=== PATIENT | female | born 1940 | race Caucasian/White ===

== ENCOUNTER 2022-11-13 13:55 | Day surgery (SDC) | payer OTHER, SELFPAY ==
[2022-11-07 08:29] VITALS: BMI 21.9
[2022-11-13] VITALS (9 sets, daily range): BP systolic 132–169; BP diastolic 55–79; PULSE 48–68; RESP 12–19; TEMP 35.8–36.7; O2SAT 94–100; BMI 21.9
--- NOTE | 2022-11-13 | DI.RAD.S_ITS ---
PROCEDURE: XR PELVIS 1-2V INDICATIONS: INTEROP TECHNIQUE: Intra-operative view of the pelvis and hip acquired. COMPARISON: [facility] [place], CR, XR PELVIS WITH BILATERAL LATERAL HIPS, 09/19/2022, 15:29. FINDINGS: Bones: Intraoperative devices prior to placement of arthroplasty prostheses are in expected positions. No fractures or suspicious bony lesions. Soft tissues: Overlying surgical retractors are present, along with other intraoperative changes. IMPRESSION: Intraoperative device in expected alignment. Dictated by: Donavan Rosales M.D. on 11/13/2022 at 19:35 Approved by: Donavan Rosales M.D. on 11/13/2022 at 19:35
--- NOTE | 2022-11-13 08:49 | DI.RAD.S_ITS ---
PROCEDURE: XR HIP W PEL IF DONE RT 2V INDICATIONS: Postop TECHNIQUE: AP pelvis and lateral view of the right hip acquired. COMPARISON: [facility], CR, XR PELVIS 1-2V, 11/13/2022, 16:40. [facility] [place], CR, XR PELVIS WITH BILATERAL LATERAL HIPS, 09/19/2022, 15:29. FINDINGS: Bones: Patient is status post right hip arthroplasty, with hardware components in expected positions. The hip joint appears congruent. The visualized bony structures appear intact. Note is made of severe left hip joint degeneration. Soft tissues: Overlying postoperative changes are noted. No suspicious soft tissue densities. IMPRESSION: Expected postsurgical changes. Dictated by: Donavan Rosales M.D. on 11/13/2022 at 18:38 Approved by: Donavan Rosales M.D. on 11/13/2022 at 18:38
[2022-11-13] MEDS: CELECOXIB 200 MG CAPSULE PO (14:20)
[2022-11-13] MEDS: ACETAMINOPHEN 325 MG TABLET 975 MG PO (14:20)
[2022-11-13] MEDS: PREGABALIN 75 MG CAPSULE PO (14:20)
[2022-11-13] MEDS: LACTATED RINGERS 1,000 ML 42 ML IV (14:21)
[2022-11-13] MEDS: VANCOMYCIN 1,000 MG/200 ML PIGGYBACK 200 MG IV (14:45)
--- NOTE | 2022-11-13 14:52 | SUR.PREOP ---
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 States they put IV's in each hand and they destroyed her veins in her arms. State the ritika come to her home on [address] every year around . States friends have felt their energy but not seen them. States they are not here with her today. 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 States some are robotic human like and some are 3 feet tall and some are 8 feet tall. Reassured she will be safe here and to notify staff if she sees ritika.
--- NOTE | 2022-11-13 15:19 | PM.PREOP ---
Pre-operative Note Interval Note History & Physical reviewed/Exam performed by Physician: Yes Changes to H&P: No
--- NOTE | 2022-11-13 15:22 | P.OP_ITS ---
Operative Date/Time/Diagnoses Date of procedure: 11/13/22 Time of procedure: 15:40 Pre-op diagnosis: Severe right hip OA Post-op diagnosis: same Procedure & Clinicians Procedure: Right total hip arthroplasty posterior approach Same procedure as scheduled: Yes Indications: The patient has had progressively worsening right hip pain with radiographic changes consistent with arthritis. Non-operative management has failed and the patient has requested total hip replacement. The risks, benefits and alternatives to surgery were discussed with the patient prior to proceeding. Risks discussed included, but were not limited to, failure to relieve pain, leg length discrepancy, dislocation, stiffness, infection, nerve damage, deep venous thrombosis, pulmonary embolism, stroke, coma, heart attack, permanent paralysis and , as well as the potential need for eventual revision of the prosthetic. Surgeon: Yohana Edgar Litigation Paralegal: Donny Paul Anesthesia Type: General and Spinal Operative Notes Findings: Severe right hip osteoarthritis, soft bone, adequate stability Closure Type: primary Specimen(s): none sent Prosthetic devices, grafts, tissues, transplants, or devices: Edgar and Nephew R3 size 50, Synergy cemented size 15 standard offset femoral stem, neutral poly liner, one 6.5 mm screw, 32 x +0 femoral head Estimated Blood Loss (mL): 250 Blood products transfused: none Procedure in detail: The patient was seen in the pre-operative area, where the patient identified the right hip as the operative site and this was marked with my initials. The patient received pre-operative antibiotics and was taken to the operating room and placed on the operative table in the left lateral decubitus position after satisfactory anesthesia. A petroleum supply specialist out was performed. The right leg was prepared from the ankle to the iliac crest with ChloroPrep in the usual fashion and draped through sterile drapes. A PA was used throughout the procedure and was essential for intraoperative positioning, retraction and safe implantation of the components. The hip was approached through an approximately 20 cm incision centered over the greater trochanter and curving gently posteriorly as it went proximally. This was carried sharply to the fascia jocelyn, which was divided and retracted with a self retaining retractor. The trochanteric bursa was excised with care being taken to avoid the sciatic nerve, which was identified and protected throughout the case. The short external rotators were incised and the capsulomuscular flap was raised and tagged for later repair. The hip was dislocated, and a femoral neck osteotomy performed approximately 15 mm above the lesser trochanter. Retractors were placed around the femur. The canal was opened with a box cutting osteotome, followed by a T handled reamer and a lateralizing reamer. The chili pepper broach was then used, followed by sequential broaching until there was good stability of the broach in the femur. Retractors were placed to expose the acetabulum. The labrum and central soft tissues were removed. Reaming was performed initially going up in 2 mm increments, then 1 mm increments until good bite was obtained with an odd sized reamer. The cup 1 mm larger than the last reamer was then inserted using the appropriate anteversion guides. A trial neutral liner was placed. The broach was placed in the canal. A trial head and neck were then placed and the hip relocated and checked for leg length and stability. An intraoperative film confirmed the component position and no evidence of fracture. The patient was stable in the position of sleep, of squatting, and could be put through a range of motion with 45 degrees internal rotation without dislocation. At 90 degrees flexion, internal rotation to 70? was possible before dislocation. This was felt to be satisfactory and the appropriate components were opened, and the trials were removed. The acetabular liner was impacted into position. A distal cement restrictor was placed. The canal was prepared with pulse lavage and meticulously packed with a epinephrine spoke soaked sponge and then carefully dried. A distal cement restrictor was used. The cement was inserted and pressurized. The final stem was then impacted into the prepared femoral canal. It was carefully held at with meticulous attention directed at position and version during the setting of the cement. A brief Betadine soak was performed while trialing with head options. The hip was meticulously irrigated with normal saline. Finally the femoral head was impacted onto the stem. The acetabulum was cleared of all material and the hip relocated one final time. The capsulomuscular flap was then repaired to the greater trochanter though an awl hole using the tag sutures. The short external rotators were repaired with a nonabsorbable suture. The fascia jocelyn was closed with Vicryl. The subcutaneous layer was closed with barbed sutures and SteriStrips. A july dressing was applied and the patient was taken to recovery having tolerated the procedure well. Complications: none Post-operative Condition: stable Disposition: Acute Care Plan for aftercare: The patient will be maintained on a standard total hip replacement protocol with weight bearing as tolerated and posterior hip precautions. The patient will receive Aspirin and sequential compression devices for DVT prophylaxis. The patient will be discharged home when safe for the home environment.
[2022-11-13] MEDS: CEFAZOLIN 2 GM/100 ML PREMIX 100 ML IV (16:00)
--- NOTE | 2022-11-13 16:18 | SUR.OPER ---
Lateral on padded OR bed. Gel axillary roll. Arms secured on padded armboard with pillows supporting top arm and bottom arm. Padded hip positioner braces x4 - anterior and posterior chest and pelvis. Additional gel pad used anterior pelvis. Gel pad under bottom leg from knee to foot and secured with tape over sheet.
[2022-11-13] MEDS: BUPIVACAINE 0.25% (PF) 60 ML, EPINEPHrine 0.3 MG INJ (16:24)
[2022-11-13] MEDS: BUPIVACAINE LIPOSOME 266 MG/20 ML VIAL INJ (16:25)
[2022-11-13] MEDS: EPINEPHrine 1 MG/ML IRR (16:27)
[2022-11-13] MEDS: ACETAMINOPHEN 325 MG TABLET 650 MG PO (19:28)
[2022-11-13] MEDS: IBUPROFEN 400 MG TABLET PO (19:29)
[2022-11-13] MEDS: LACTATED RINGERS 1,000 ML 100 ML IV (19:30)
[2022-11-13] MEDS: OXYCODONE IR 5 MG TABLET PO (19:41)
[2022-11-13] MEDS: PROPRANOLOL 10 MG TABLET 40 MG PO (19:41)
[2022-11-13] MEDS: OXYCODONE IR 10 MG TABLET PO (20:34)
[2022-11-13] MEDS: DOCUSATE 100 MG CAPSULE PO (20:34)
[2022-11-13] MEDS: ASPIRIN EC 81 MG TABLET PO (21:35)
[2022-11-14] VITALS (11 sets, daily range): BP systolic 74–135; BP diastolic 35–65; PULSE 49–66; RESP 13–18; TEMP 36.1–36.2; O2SAT 95–98
[2022-11-14] MEDS: CEFAZOLIN 2 GM/100 ML PREMIX 100 ML IV ×2 (01:00→08:18)
[2022-11-14] MEDS: IBUPROFEN 400 MG TABLET PO ×4 (01:32→16:15)
[2022-11-14] MEDS: ACETAMINOPHEN 325 MG TABLET 650 MG PO ×3 (01:37→13:45)
[2022-11-14] MEDS: OXYCODONE IR 5 MG TABLET PO (01:38)
[2022-11-14 05:04] LABS: Hematocrit 35.3 % (36-46)
--- NOTE | 2022-11-14 07:52 | PM.DS.1 ---
History of Present Illness History of Present Illness Date Patient Seen: 11/14/22 Time Patient Seen: 07:52 Chief complaint: OPB Narrative: Operative Date/Time/Diagnoses Date of procedure: 11/13/22 Time of procedure: 15:40 Pre-op diagnosis: Severe right hip OA Post-op diagnosis: same Procedure & Clinicians Procedure: Right total hip arthroplasty posterior approach Same procedure as scheduled: Yes Indications: The patient has had progressively worsening right hip pain with radiographic changes consistent with arthritis. Non-operative management has failed and the patient has requested total hip replacement. The risks, benefits and alternatives to surgery were discussed with the patient prior to proceeding. Risks discussed included, but were not limited to, failure to relieve pain, leg length discrepancy, dislocation, stiffness, infection, nerve damage, deep venous thrombosis, pulmonary embolism, stroke, coma, heart attack, permanent paralysis and , as well as the potential need for eventual revision of the prosthetic. Surgeon: Yohana Edgar Case Packer And Sealer: Donny Paul Anesthesia Type: General and Spinal Operative Notes Findings: Severe right hip osteoarthritis, soft bone, adequate stability Closure Type: primary Specimen(s): none sent Prosthetic devices, grafts, tissues, transplants, or devices: Edgar and Nephew R3 size 50, Synergy cemented size 15 standard offset femoral stem, neutral poly liner, one 6.5 mm screw, 32 x +0 femoral head Estimated Blood Loss (mL): 250 Blood products transfused: none Discharge Providers Provider Discharge Date: 11/14/22 Primary care physician: ALMAZ Kirby Consults: 11/13/22 08:49 Consult to Anesthesiology Routine Comment: Consulting Provider: Anesthesiologist Reason for consultation: Regional block for post operative pain control 11/13/22 19:13 Consult to Discharge Planning Routine Comment: Consult to Occupational Therapy Evaluate & Treat Comment: Physician Instructions: Evaluate and treat Consult to Physical Therapy Evaluate & Treat Comment: Physician Instructions: post op RUBÉN protocol Discharge provider: Marie Mendoza PA-C Summary Hospital Course Discharge Diagnosis: Right hip osteoarthritis, s/p right total hip arthroplasty Hospital Course: Ms Barnard's hospital course was unremarkable. On the morning of POD# 1, she was not having significant pain, but she was feeling weak and unsure about going home. She does have someone lined up to help her at home, but she was afraid her care would be 'too much' for this person to handle. She was eating and voiding without difficulty, but she had not yet worked w/ PT. Exam Vital Signs (past 8 hours): - 11/14/22 00:00 11/14/22 04:00 11/14/22 06:53 Temperature 97.1 F L 97.0 F L Pulse Rate 50 L 63 64 Respiratory Rate 13 17 18 Blood Pressure 135/65 114/49 L 124/62 Pulse Oximetry 98 95 95 Oxygen Flow Rate 4 2 0 Oxygen Delivery Method Room Air Oxygen Flow Rate 0 Narrative Exam Narrative: 5/5 strength in hip flexors, quadriceps, hamstrings, DF, PF, EHL on right. Sensation to light touch intact throughout RLE. Calf soft, compressible, nontender and without palpable cords or masses. JAZIEL dressing functioning, CDI. Objective Labs 11/14/22 04:25 Labs: Laboratory Results - last 24 hr 11/14/22 04:25 Hgb 12.0 Hct 35.3 L PFSH Medical History (Updated 11/07/22 @ 09:23 by Betzaida Johnson RN) Bilateral hip pain Edema History of COVID-19 (~08/2022) Kidney stone Osteoarthritis Raynaud's phenomenon Sleep apnea Syncope (10/2021) Tremor Surgical History (Updated 11/07/22 @ 09:21 by Betzaida Johnson RN) Hx of tonsillectomy Hx of tubal ligation Social History household members: none Smoking Status: Never smoker alcohol intake: current Discharge Assessment & Plan Assessment and Plan Assessment: Right hip osteoarthritis, s/p right total hip arthroplasty Plan of Treatment: Discharge home after PT if PT agrees and pt feeling confident in abilities to take care of herself at home with minimal assistance. ASA BID x 6 weeks for VTE prophylaxis, multimodal pain control, outpt PT, f/u in office in 2 weeks as scheduled. Discharge Plan Discharge Plan Patient Disposition: Home Discharge orders & Medications Discharge Orders: Discharge (Order); Ordered 11/14/22 Ordered By: Marie Mendoza Prescriptions: Continued acetaminophen 500 mg Tablet 1,000 mg PO DAILY propranolol 40 mg Tablet 40 mg PO TID PRN (Reason: Tremors) biotin 10,000 mcg Capsule 20,000 mcg PO DAILY ibuprofen 200 mg Tablet 600 mg PO BID furosemide 20 mg Tablet 20 mg PO DAILY Medication counseling provided by Pharmacist: Yes Follow up/Referrals: Samaria Hyde, FELIX-C [Primary Care Provider] - Yohana Edgar MD [Physician] - As previously scheduled (Follow up w/ Dr Edgar on 11/28/2022 @ 3:30 pm at [facility] office in [place].) Diet/Activity/Treatments Diet: Diet as Tolerated Activity: Weight bearing as tolerated to right leg. Posterior hip precautions. Skin/Wound/Dressing Care Report to your healthcare provider any signs of infection, such as:: chills, fever, night sweats, unusual drainage and unusual redness Dressing: May shower. Leave dressing in place until follow up in office. When batteries in 5-7 days, may remove and dispose of battery pack. No bathing or otherwise soaking incision. Call the office if the dressing becomes saturated inside. Visit Report/Discharge Packet Instructions: DI for Hip Replacement Stand Alone Forms: Patient Portal/API, Surgery Discharge Discharge Data Primary Care Provider: Samaria Hyde Attending Provider: Yohana Edgar
[2022-11-14] MEDS: PROPRANOLOL 10 MG TABLET 40 MG PO (08:18)
[2022-11-14] MEDS: ASPIRIN EC 81 MG TABLET PO (08:18)
[2022-11-14] MEDS: FUROSEMIDE 20 MG TABLET PO (08:18)
[2022-11-14] MEDS: DOCUSATE 100 MG CAPSULE PO (08:18)
--- NOTE | 2022-11-14 09:02 | OT.IP.EVAL ---
Current Diagnoses Unilateral post-traumatic osteoarthritis, right hip (11/13/22) Surgery Performed Operation Date: 11/13/22 14:15 Actual Procedures p Total Hip Arthroplasty posterior(Right) - Yohana Edgar MD Past Medical History (Last Updated 11/07/22 @ 09:23 by Betzaida Johnson RN) Bilateral hip pain Edema History of COVID-19 (~08/2022) Kidney stone Osteoarthritis Raynaud's phenomenon Sleep apnea Syncope (10/2021) Tremor Surgical History (Last Updated 11/07/22 @ 09:21 by Betzaida Johnson RN) Hx of tonsillectomy Hx of tubal ligation Occupational Therapy Inpatient Evaluation/Re-Eval M1 PT/OT-IP Prior Functional Status Start: 11/14/22 09:10 Freq: NEEDED Status: Active Protocol: Document 11/14/22 08:21 [facility] (Rec: 11/14/22 09:29 [facility] [id number]) Medical Review Prior Functional Status Communication Independent Mobility and Gait Pt states just this past week has used a 4ww, otherwise was using her cane. Activities of Daily Living and IADL's Pt had pain with ADL and IADL needs. Prior Functional Level (Other details) Pt has an employee/friend who will be staying with her initially at night and then will be there during the day to assist with her needs. Social History Household Members none Living Arrangements House Number of Floors (Floors) Two Floors Number of Stairs To Enter/Railing? Pt has a ramp to enter and stairs to the upstairs. Pt can stay on the main level as has a hospital bed in the living room. Home Environment High Toilet Home Equipment Front Wheel Walker,Four Wheel Walker,Straight Cane,Bedside Commode,Drop Tester,Grab Bars Near Toilet Additional Social History Comment Pt also has an apartment next to her house with 2 steps and left rail to enter, high toilet with grab bars, walk in shower, and hand held shower spray. Pt can stay there if needed. Pt states will just service inspector a large basin by the sink to sponge off. M2 OT-IP Current Condition Start: 11/14/22 09:10 Freq: Status: Active Protocol: Document 11/14/22 08:21 [facility] (Rec: 11/14/22 09:29 [facility] [id number]) Occupational Therapy Current Condition Current Condition Evaluation Date 11/14/22 Treatment Diagnosis S/p R RUBÉN posterior approach Diagnosis Onset Date 11/13/22 Post Operative Precautions Posterior Hip Precautions No Hip Flexion > 90 degrees,No Hip Internal Rotation,No Hip Adduction M3 OT- IP Subjective and Pain Start: 11/14/22 09:10 Freq: Status: Active Protocol: Document 11/14/22 08:21 [facility] (Rec: 11/14/22 09:29 [facility] [id number]) OT- Subjective Occupational Therapy Visit Type Type Initial Evaluation Visit Start Time 08:21 Visit Stop Time 09:02 Total Visit Minutes 42 Occupational Therapy Visit Comments Patient Comments Pt agreed to get up. Patient/Caregiver Goals TO go home. OT Pain Assessment Pain When Pain Assessed During Mobility Pain Present Pain Present Pain Reported Location Right Hip Intensity 5 Scale Used Numeric (0 - 10) M4 OT- IP ADL's Start: 11/14/22 09:10 Freq: Status: Active Protocol: Document 11/14/22 08:21 [facility] (Rec: 11/14/22 09:29 [facility] [id number]) OT ZQE-Rpsw-Rxofeuw General Evaluation Self-Feeding Ability Independent OT ADL-Grooming Comments OT Grooming Comments Pt able to wash her hands after set-up. OT ADL-Oral Care Comments Oral Care Comments Not performed. OT ADL-Dressing General Eval Lower Body Dressing Ability Minimal Assistance,Maximum Assistance Areas Needing Assistance Socks Comments OT Dressing Comments Pt able to practice use of sock aid to assist for LB dressing needs. Pt states her friend will just be able to assist her. Pt states has Signal Integrity Engineer slip on shoes. OT ADL-Toileting Comments OT Toileting Comments Prior to OT session , pt used the BSC with nursing. Suggested best for pt to stand for hygiene needs with use of wet wipes. In addition to wear pull up brief at night to prevent having to gray to the bathroom at night. OT ADL-Bathing Comments OT Bathing Comments Not performed. M5 OT- IP IADL's Start: 11/14/22 09:10 Freq: Status: Active Protocol: Document 11/14/22 08:21 [facility] (Rec: 11/14/22 09:29 [facility] [id number]) OT-Instrumental Activities of Daily Living Home Safety Awareness Home Safety Comments Pt has a supportive friend, Peg who herself has had same hip surgery 3 years ago. Peg to stay with the pt initially for a couple days and then be there during the work day. M6 OT- IP Functional Cognition Start: 11/14/22 09:10 Freq: Status: Active Protocol: Document 11/14/22 08:21 [facility] (Rec: 11/14/22 09:29 [facility] [id number]) Cognitive Factors Limiting Selfcare Function Cognitive Ability Level of Alertness Alert Patient Orientation Name,Age,Birthday,Month,Date, Year,Day of Week,Place, Situation Attention Span Ability Capable of Focused Attention, Capable of Sustained Attention Safety Awareness Decreased Recall of Precautions,Decreased Ability to Apply Precautions, Underestimates Need for Assistance Cognitive Comments Cognitive Assessment Comments Pt is easily distracted. Pt not able to recall all hip precautions and needing cues to follow during mobility and ADl needs. OT- Vision and Hearing OT- Hearing Assessment OT- Hearing Assessment WFL OT- Vision Assessment Visual Acuity Glasses For Reading M7 OT- IP Mobility and Balance Start: 11/14/22 09:10 Freq: Status: Active Protocol: Document 11/14/22 08:21 [facility] (Rec: 11/14/22 09:29 [facility] [id number]) OT-Transfer Assessment Sit to and From Stand Sit to and from Stand Contact Guard Assistance Transfers Transfer Ability Standby Assistance Technique Transfer Destination Bed Transfer Technique Stand Step Pivot Devices Transfer Assistive Devices Gait Belt,Front Wheeled Walker Comments Mobility Comments CGA to close SBA to come to stand from the recliner to FWW . Pt able to walk in the room with SBA and needing cues to follow her hip precautions when sitting back down. OT- Balance Assessment Sitting Balance and Reactions Static Sitting Balance Ability Normal Dynamic Sitting Balance Ability Good Standing Balance and Reactions Static Standing Balance Ability Good Dynamic Standing Balance Ability Fair M9 OT- IP Assessment and Plan Start: 11/14/22 09:10 Freq: Status: Active Protocol: Document 11/14/22 08:21 [facility] (Rec: 11/14/22 09:29 [facility] [id number]) OT Summary Assessment and Plan Potential Rehabilitation Potential Excellent Analytic Complexity at Evaluation Low Summary OT Impairments Pain,Balance,Functional Cognition,Functional Mobility, Dressing,Toileting,Bathing, Toilet Transfers,Shower Transfers,Activity Tolerance Progress Towards Goals Progressing Toward Goals Assessment Summary Pt low complexity and main barrier are having difficulty to incorporate her hips precautions during ADl and mobility needs, pain, and a little unsteady on her feet. Pt also has arthritis in her left hip. Pt has a supportive friend who will be staying with her to assist and also work with the pt and will be there to assist during the day as well. Pt to go home with assist when medically stable. Pt's bp sitting 102/58 and after walking 120/62 and o2 on RA 99%. Goals Self-Feeding Goal Independent Grooming Goal Independent Dressing Goal Independent,Drop Tester Toileting Goal Independent Bathing Goal Independent Toilet Transfer Goal Independent Shower Transfer Goal Independent Patient/Caregiver Education Goal Demonstrate Post-Op Precautions Days to Meet Goals 5 Frequency of Treatment Frequency Of Treatment Once a Day Treatment Plan OT Treatment Plan ADL Training,Functional Cognition Training,Functional Mobility,Patient/Family Education,Discharge Planning Other Treatment Recommendations and Next shower if pt still here Treatment Focus Discharge Recommendations OT Discharge Recommendations Home with Assistance, Outpatient PT Transportation Needs at Discharge Private Vehicle
--- NOTE | 2022-11-14 11:47 | PT.IIE ---
Current Diagnoses Unilateral post-traumatic osteoarthritis, right hip (11/13/22) Surgery Performed Operation Date: 11/13/22 14:15 Actual Procedures p Total Hip Arthroplasty posterior(Right) - Yohana Edgar MD Surgical History (Last Updated 11/07/22 @ 09:21 by Betzaida Johnson RN) Hx of tonsillectomy Hx of tubal ligation Medical History (Last Updated 11/07/22 @ 09:23 by Betzaida Johnson RN) Bilateral hip pain Edema History of COVID-19 (~08/2022) Kidney stone Osteoarthritis Raynaud's phenomenon Sleep apnea Syncope (10/2021) Tremor Physical Therapy Inpatient Evaluation/Re-Eval M1 PT/OT-IP Prior Functional Status Start: 11/14/22 09:10 Freq: NEEDED Status: Active Protocol: Document 11/14/22 11:30 ES (Rec: 11/14/22 11:47 ES [id number]) Medical Review Prior Functional Status Medical History Reviewed Yes Communication Independent Mobility and Gait Pt states just this past week has used a 4ww, otherwise was using her cane independently. Activities of Daily Living and IADL's Pt had pain with ADL and IADL needs. Social History Household Members none Living Arrangements House Number of Floors (Floors) Two Floors Number of Stairs To Enter/Railing? Pt has a ramp to enter and stairs to the upstairs. Pt can stay on the main level as has a hospital bed in the living room. Home Environment High Toilet Home Equipment Front Wheel Walker,Four Wheel Walker,Straight Cane,Bedside Commode,Fitness And Wellness Instructor,Hospital Bed, Bed Rails,Grab Bars Near Toilet Additional Social History Comment Pt has an employee/friend who will be staying with her initially at night and then is there during the work day to assist with her needs. Pt also has an apartment next to her house with 2 steps and left rail to enter, high toilet with grab bars, walk in shower , and hand held shower spray. Pt can stay there if needed. Pt states will just director packaging a large basin by the sink to sponge off. M2 PT-IP Current Condition Start: 11/14/22 11:28 Freq: NEEDED Status: Active Protocol: Document 11/14/22 11:30 ES (Rec: 11/14/22 11:47 ES [id number]) Physical Therapy Current Condition Current Condition Evaluation Date 11/14/22 Treatment Diagnosis s/p R RUBÉN posterior Onset Date 11/13/22 M3 PT-IP Subjective Start: 11/14/22 11:28 Freq: NEEDED Status: Active Protocol: Document 11/14/22 11:30 ES (Rec: 11/14/22 11:47 ES [id number]) Subjective Physical Therapy Visit Type Type Initial Evaluation Visit Start Time 10:47 Visit Stop Time 11:25 Total Visit Minutes 38 Physical Therapy Visit Comments Patient Comments Patient up in recliner, alert, agreeable to work with PT. Stated she is planning to go home tomorrow because the surgeon told her she could stay another night. Therapy Pain Assessment Pain When Pain Assessed At Rest Pain Present Pain Present Pain Reported Location Right Hip Intensity 5 Scale Used Numeric (0 - 10) Pain Management Techniques Apply Cold,Timing of Activity with Medications M4 PT-IP Mobility and Gait Start: 11/14/22 11:28 Freq: NEEDED Status: Active Protocol: Document 11/14/22 11:30 ES (Rec: 11/14/22 11:47 ES [id number]) PT-Bed Mobility Assessment Supine to Sit Supine to Sit Minimal Assistance,Head of Bed Elevated,Bedrails Sit to Supine Sit to Supine Minimal Assistance,Head of Bed Elevated,Bedrails Scooting Scooting to Edge of Bed Standby Assistance Scooting Up and Down in Bed Standby Assistance PT-Transfer Assessment Sit to and From Stand Sit to and from Stand Contact Guard Assistance,Use of Upper Extremities Equipment Transfer Assistive Device Gait Belt,Front Wheeled Walker Orthotic/Prosthetic Devices or Brace: No Transfers Transfer Destination Bed,Chair Transfer Technique Ambulated Transfer Ability Level of Assist Contact Guard Assistance,Use of Upper Extremities Comments Mobility Comments Reviewed precautions with patient prior to getting up. Patient able to perform transfers with min cues for precautions, min cues for hand placement for safety with FWW . Gait Assessment Gait Gait Assistance Required: Contact Guard Assist Distance (Feet) 80 Able to Maintain Weight Bearing Status Yes During Gait Assistive Devices Assistive Device Gait Belt,Front Wheeled Walker Orthotic/Prosthetic Devices or Brace: No Gait Deviations General Gait Pattern Antalgic,Flexed Trunk Factors Limiting Gait Function Factors Limiting Gait Function Decreased Strength,Pain,Poor Balance Comments Gait Comments Cued patient to initiate gait with RLE but would revert to LLE after stopping. She was cued to keep FWW close to her to reduce fall risk. Ambulated slowly. Stair Climbing Assessment Comments Stair Climbing Comments Offered to do stair training to prepare for getting in/out of apartment but patient was not willing to do so this visit. PT-Balance Assessment Sitting Balance and Reactions Static Sitting Balance Ability Good Dynamic Sitting Balance Ability Good Standing Balance and Reactions Static Standing Balance Ability Fair Dynamic Standing Balance Ability Fair Device Used FWW M5 PT-IP Objective Assessments Start: 11/14/22 11:28 Freq: NEEDED Status: Active Protocol: Document 11/14/22 11:30 ES (Rec: 11/14/22 11:47 ES [id number]) Orientation Orientation/Cognition Level of Alertness Alert Safety Awareness Understands Safety Issues Memory Description Short Term Impaired Comments Difficulty recalling precautions/instructions, needs reminders. Gross Range of Motion Lower Extremity ROM Assessment Bilaterally Impaired Impairments Decreased active hip flex and abd B. Strength Lower Extremity Strength Assessment Right Impaired Comments Strength Comments R hip flexion/SLR and abd 3-/5 M6 PT-IP Treatment Start: 11/14/22 11:28 Freq: NEEDED Status: Active Protocol: Document 11/14/22 11:30 ES (Rec: 11/14/22 11:47 ES [id number]) Physical Therapy Treatment Exercises Exercises Ankle Pumps,Gluteal Sets,Quad Sets,Heel Slides,Supine Hip Abduction Education Education Provided Precautions,Weight Bearing Status,Post-Op Packet,Safety Other Treatments Other Treatment Performed Education on using FWW for safety at home vs 4WW until stronger and less painful. M7 PT-IP Assessment and Plan Start: 11/14/22 11:28 Freq: NEEDED Status: Active Protocol: Document 11/14/22 11:30 ES (Rec: 11/14/22 11:47 ES [id number]) PT Summary Assessment and Plan Potential Rehabilitation Potential Good Status of Condition at Evaluation Stable Summary Impairments Pain,ROM,Strength,Balance,Bed Mobility,Transfers,Gait Assessment Summary Patient is a 82 year old female POD 1 s/p R posterior RUBÉN. She required assistance with bed mobility due to weakness in RLE. She otherwise was CGA for transfers and gait using FWW. She was able to performe RUBÉN ex's with min A for heel slides and hip abd, improved with repetition. She will benefit from another PT session to review hip precautions and exercises, and to trial use of leg hand plug shaper to increase her independence with bed mobility. Anticipate she will be able to d/c home this afternoon with caregiver' s assistance. Goals Bed Mobility Goal Standby Assistance Transfer Goal Standby Assistance,Front Wheeled Walker Gait Goal Standby Assistance,Front Wheel Walker Gait Distance 100 Other Goals Patient will be indep with RUBÉN HEP. Patient will be able to recall hip precautions without cues. Days to Meet Goals 2 Frequency of Treatment Frequency Of Treatment Twice a Day Treatment Plan Physical Therapy Treatment Plan Bed Mobility Training,Transfer Training,Gait Training, Therapeutic Exercise,Post Op Education,Discharge Planning, Hot or Cold Pack Precautions Posterior Hip Precautions No Hip Flexion > 90 degrees,No Hip Internal Rotation,No Hip Adduction Other Precautions Fall risk Weight Bearing Status Weight Bearing Status Weight Bear as Tolerated Allowed Weight Bearing Amount (enter % WBAT RLE or #) (%) Recommendations To Nursing Amount of Assist Needed 1 Person Assist Discharge Recommendations PT Discharge Recommendations Home with Assistance, Outpatient PT Transportation Needs at Discharge Private Vehicle
--- NOTE | 2022-11-14 14:38 | PT-IP ANOTE ---
Pt refused to work with PT this afternoon. She reports being too tired and sore from this morning. Will check back in later today or tomorrow morning.
--- NOTE | 2022-11-14 15:00 | PT.IPTN ---
Current Diagnoses Unilateral post-traumatic osteoarthritis, right hip (11/13/22) Surgery Performed Operation Date: 11/13/22 14:15 Actual Procedures p Total Hip Arthroplasty posterior(Right) - Yohana Edgar MD Physical Therapy Treatment Note M2 PT-IP Current Condition Start: 11/14/22 11:28 Freq: NEEDED Status: Active Protocol: Document 11/14/22 11:30 ES (Rec: 11/14/22 11:47 ES [id number]) Physical Therapy Current Condition Current Condition Evaluation Date 11/14/22 Treatment Diagnosis s/p R RUBÉN posterior Onset Date 11/13/22 M3 PT-IP Subjective Start: 11/14/22 11:28 Freq: NEEDED Status: Active Protocol: Document 11/14/22 15:15 TS (Rec: 11/14/22 15:27 TS [id number]) Subjective Physical Therapy Visit Type Type Treatment Note Visit Start Time 15:00 Visit Stop Time 15:15 Total Visit Minutes 15 Number of RIDE MECHANIC Visits 1 Physical Therapy Visit Comments Patient Comments Pt found resting in recliner, reports feeling sore and being cold, after some motivation agreed to PT. M4 PT-IP Mobility and Gait Start: 11/14/22 11:28 Freq: NEEDED Status: Active Protocol: Document 11/14/22 15:15 TS (Rec: 11/14/22 15:27 TS [id number]) PT-Transfer Assessment Sit to and From Stand Sit to and from Stand Contact Guard Assistance,Use of Upper Extremities Equipment Transfer Assistive Device Gait Belt,Front Wheeled Walker Orthotic/Prosthetic Devices or Brace: No Comments Mobility Comments Pt recalled 3/3 hip precautions prior to mobility. Sit to stand CGA with FWW, pt impulsive to stand before therapist was ready. She ambulated ~150' SBA with FWW, quick step to gait with flexed posture. pt was left back in chair with nursing discussing d/c. Gait Assessment Gait Gait Assistance Required: Standby Assistance Distance (Feet) 150 Able to Maintain Weight Bearing Status Yes During Gait Assistive Devices Assistive Device Gait Belt,Front Wheeled Walker Orthotic/Prosthetic Devices or Brace: No Gait Deviations General Gait Pattern Antalgic,Flexed Trunk Factors Limiting Gait Function Factors Limiting Gait Function Decreased Strength,Pain,Poor Balance Comments Gait Comments See mobility comments. Stair Climbing Assessment Comments Stair Climbing Comments Pt reports she is not going to be doing stairs. Has a ramp at home. PT-Balance Assessment Sitting Balance and Reactions Static Sitting Balance Ability Good Dynamic Sitting Balance Ability Good Standing Balance and Reactions Static Standing Balance Ability Good Dynamic Standing Balance Ability Fair Device Used FWW M5 PT-IP Objective Assessments Start: 11/14/22 11:28 Freq: NEEDED Status: Active Protocol: Document 11/14/22 11:30 ES (Rec: 11/14/22 11:47 ES [id number]) Orientation Orientation/Cognition Level of Alertness Alert Safety Awareness Understands Safety Issues Memory Description Short Term Impaired Comments Difficulty recalling precautions/instructions, needs reminders. Gross Range of Motion Lower Extremity ROM Assessment Bilaterally Impaired Impairments Decreased active hip flex and abd B. Strength Lower Extremity Strength Assessment Right Impaired Comments Strength Comments R hip flexion/SLR and abd 3-/5 M6 PT-IP Treatment Start: 11/14/22 11:28 Freq: NEEDED Status: Active Protocol: Document 11/14/22 15:15 TS (Rec: 11/14/22 15:27 TS [id number]) Physical Therapy Treatment Exercises Exercises Ankle Pumps,Quad Sets,Heel Slides Education Education Provided Precautions,Weight Bearing Status,Post-Op Packet,Safety Other Treatments Other Treatment Performed Pt performed ankle pumps, quad sets, heel slides. M7 PT-IP Assessment and Plan Start: 11/14/22 11:28 Freq: NEEDED Status: Active Protocol: Document 11/14/22 15:15 TS (Rec: 11/14/22 15:27 TS [id number]) PT Summary Assessment and Plan Potential Rehabilitation Potential Good Summary Impairments Pain,ROM,Strength,Balance,Bed Mobility,Transfers,Gait Progress Towards Goals Progressing Toward Goals Assessment Summary Pt continues to progress well with her mobility. She progressed her gait to SBA ~ 150' in hallway, she denied any dizziness, SOB or thermal changes. She demonstrates a quick pacing step to gait with no buckling or LOB. She demonstrated good carryover and understanding of her hip precautions and post-op exercises. PT is recommending return home with assist from caregiver and outpatient therapy. Goals Bed Mobility Goal Standby Assistance Transfer Goal Standby Assistance,Front Wheeled Walker Gait Goal Standby Assistance,Front Wheel Walker Gait Distance 100 Other Goals Patient will be indep with RUBÉN HEP. Patient will be able to recall hip precautions without cues. Days to Meet Goals 2 Frequency of Treatment Frequency Of Treatment Twice a Day Treatment Plan Physical Therapy Treatment Plan Bed Mobility Training,Transfer Training,Gait Training, Therapeutic Exercise,Post Op Education,Discharge Planning, Hot or Cold Pack Precautions Posterior Hip Precautions No Hip Flexion > 90 degrees,No Hip Internal Rotation,No Hip Adduction Other Precautions Fall risk Weight Bearing Status Weight Bearing Status Weight Bear as Tolerated Allowed Weight Bearing Amount (enter % WBAT RLE or #) (%) Recommendations To Nursing Amount of Assist Needed 1 Person Assist Discharge Recommendations PT Discharge Recommendations Home with Assistance, Outpatient PT Transportation Needs at Discharge Private Vehicle
--- NOTE | 2022-11-14 15:54 | PC.NURSE ---
pt's blood pressure dropped to 78/38 map-51, heart rate-54 while sitting in chair at 1115. rechecked blood pressure with a smaller cuff on opposite arm and got a reading of 79/37 map-55, heart rate-55. pt was asymptomatic. Restarted IV fluids and encouraged oral intake. Continued to monitor with pressures ranging from 70's/30s- low 90's/50's. Called PILLO Mendoza and she said the pt was okay to discharge if she was asymptomatic. pt very upset because she was under the impression she could stay longer- per her conversation with Dr. Edgar prior to surgery was told that she could stay up to 2-3 days, mentioned contacting her supervisor asbestos textile. Care management team came and discussed options with her. pt decided to be discharged-pt called her caregiver to come pick her up and is on her way. 1650 pt continually taking off chair alarm and getting up without calling nursing staff. Discussed safety measures and using the call light when getting up and waiting for staff to assist her. pt is alert and oriented but is refusing to use the call light or walker at this time. Will continue to monitor and do frequent patient checks to ensure safety.
--- NOTE | 2022-11-14 17:39 | PC.NURSE ---
Patient is dressed and IV has been removed. Discussed s/s of infection and s/s of stroke, reiterated safety measures at home; including using a walker, taking time to get up, and appropriate use of narcotics. Patient has no further questions. Wheeled out to private vehicle via wheelchair by certified indoor environmentalist and accompanied by friend.
--- NOTE | 2022-11-14 17:51 | CM.DANOTE ---
DCP Assessment: Patient is a 82yo female here under SDC following a planned right hip surgery with Dr. Edgar on 11.13.22. PCP: Samaria Hyde Payer: [employer] and self pay ACCOUNT EXECUTIVE METALWORKING reviewed EMR. PILLO Salazar placed signed d/c orders in the am. PT/OT recommend home with assistance. From nursing staff, patient reported she did not want to go home and surgery team told her she could stay two or three days. From nursing staff, nurse reports being concerned with patient's low blood pressure for her d/c home safely. Patient had refused to work with PT later in the day due to being tired, but nursing and PT report wanting to get her up and moving to see if patient's blood pressure would rise WNL with movement. Nursing staff informed PILLO Salazar about patient's blood pressure. Marie reported to nurse patient was still okay to d/c home from their perspective. ACCOUNT EXECUTIVE METALWORKING entered room and introduced self and role. Patient was sitting up in her chair and appeared A/Ox4. Patient reports not wanting to go home today due to surgery team tell her she can stay another day. ACCOUNT EXECUTIVE METALWORKING attempted to explain at length the difference between SDC and OBS status and how that would impact her bill due to medicare Part A versus Part B coverage. Patient did not appear to understand at this time. UR RN Atiya Sprague attempted to explain the difference in status and what that means for her stay. Patient did not appear to understand. Metal Furniture Panel Coverer/UR lead Yaneli attempted to explain, at length, to which patient appeared to understand. 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 Patient reports her BP is typically lower at baseline. PT/OT have cleared patient to d/c home with assistance at this time. Patient has a walker, cane, hospital bed, and additional equipment and has a caregiver at home to support her. Plan: patient will d/c home with assistance from caregiver in POV. CM team will continue to follow as needed. GRISELDA Kitchen Discharge Planning/Care Management CM Discharge Assessment Start: 11/14/22 17:48 Freq: Status: Active Protocol: Document 11/14/22 17:48 (Rec: 11/14/22 17:51 [id number]) Discharge Planning Assessment Assigned Solutions Manager Zina, ACCOUNT EXECUTIVE METALWORKING DPOA/Assigned Designee Name Peg Jhaveri (friend) Contact Information [phone] Advance Directives? No History Provided By Patient,Medical Record Prior Living Arrangements House Household Members none Comment has a 24 hour caregiver at home DME Already Rented / Owned Hospital Bed,FWW / Walker,Cane ,Other Comment ramp, bed rails Barriers to Discharge No Discharge Plan Home Transportation Arrangement caregiver will transport Whiteboard Updated in Patient Room with Yes name and ext. # of Solutions Manager Review Status In Process Next Review Type Continued Stay Review Pre-Anesthesia Assessment Start: 11/07/22 08:29 Freq: Status: Discharge Protocol: Document 11/07/22 08:29 [facility] (Rec: 11/07/22 09:41 CAB [id number]) Pre-Anesthesia Assessment Preferred Name Marky Patient Information Reviewed Via Phone Assessment Assessment Completed With Patient Diagnostic Results BMP/CMP,CBC,EKG Comment Outside labs/EKG scanned Primary Care Provider Samaria Hyde Seen Specialist in Last 12 Months Yes Specialist Seen Orthopedist Primary Language Slovak Industrial Engineering Required No Height 162.56 cm Weight 58.06 kg Body Mass Index (BMI) 21.9 Hearing Ability Normal Visual Assist Magnifying Glass Dentition Type Teeth, Natural Present Barriers to Learning None Hx Anesthesia Reactions No Hx Family Anesthesia Reaction No Hx Malignant Hyperthermia No Hx Blood Transfusions No Anesthesia Review Requested No Tie Loader No alcohol intake current alcohol intake frequency a few times a week Smoking Status Never smoker Substance Use Type does not use Pain Present Pain Reported Musculoskeletal Symptoms Abnormal Gait,Difficulty Walking,Joint Pain,Joint Swelling,Radiating Pain into Limb History of Falling (Recent or History of Yes ) Patient is completely paralyzed or No completely immobile Prosthesis or Orthotic Device Cane,Front Wheel Walker Mental Status Oriented to own ability Is patient on oxygen? No Does patient have BURNS/SOB No Hx Sleep Apnea Yes: No treatment, pt states resolved with potassium intake Currently Taking a Beta Joe Yes: Propranolol for tremors Hx Chest Pain No Hx SOB No Hx Syncope or Dizziness No Anti-Coagulant Therapy No Has a Public Health Dietitian No Cardiac Testing No Hx Pacemaker/ICD No Pacemaker Rep Required? No Cardiac Clearance Received Not Applicable Diet Type At Home Regular,Vegetarian Dysphagia No: Avoids, sugars, flours, gluten Gastrointestinal Symptoms None Chronic UTI No Bladder Pattern Incontinent Urinary Catheter Present No Hx Urinary Self Catheterization No Diabetes No HgbA1C 5.4 Date 09/24/22 Patient No Lactating No Hx Drug Resistant Organism No Presence of External or Internal Medical No Devices Have you had any close contact with No someone diagnosed with COVID-19? Received a COVID vaccine? Yes Received all doses? Yes Marital Status / Lives With none Current Living Arrangements House Number of Floors (Floors) Two Floors Support System Caregiver Does the Patient Have Assistance After Yes: Caregiver will stay with Surgery pt @DC to assist with care Patient Discharge Plan Description Return Home Comment Pt advised 1-2 day length of stay per surgeon Feels Safe in Current Environment Yes Been Physically Hurt or Threatened By a No Person in Current Environment Do you have thoughts of harming yourself None or others? Are you currently considering suicide? No Do you have a plan to hurt yourself or No Plan others? Do You Have Any Spiritual Beliefs That No May Affect Your HC Choices? Do You Have Any Cultural Practices That No May Affect Your HC Choices? Comment Buddaist Who Can We Speak to About Patient's Care Family, friends Identifying Code for Release of Patient Declines to issue Information Health Care Proxy/Next of Kin Kelli (daughter) Peg ( caregiver) Health Care Proxy Phone Number Kelli [phone] Peg: [phone] Emergency Contact Name Kelli (daughter) Peg ( caregiver) Emergency Contact Phone Number Kelli [phone] Peg: [phone] Advance Directives? No Power of Postal Support Employee No PAC Instructions Do not shave/clip surgical site,Durable medical equipment ,Medications to take/avoid, Nasal antibiotic,No ETOH/ petroleum product on skin DOS, NPO,Pre-surgical wash,Sensory aids,Sturdy shoes/comfortable clothes,Do not bring valuables and remove jewelry
== END 2022-11-14 17:46 | disposition home or self-care (01) ==
LOC: OR 13:58 → AC 13:59
PROVIDERS: PCP Registered Nurse; Referring Provider Orthopaedic Surgery; Visit Provider Orthopaedic Surgery
PROC: 0SR90JZ Replacement of Right Hip Joint with Synthetic Substitute, Open Approach (ICD-10-PCS; CPT 27130; principal; 2022-11-13 14:15)
DX: M16.51 Unilateral post-traumatic osteoarthritis, right hip (principal)
CPT/HCPCS: 27130; 36415; 72170; 73501; 73502; 85014; 85018; 97161; 97165; 97530; 97535; C1776; C9290; J0171; J0690; J2405; J2704; J3010